=== PATIENT | female | born 1950 | race Caucasian/White ===

== ENCOUNTER → 2017-07-22 | Outpatient (CLI) | payer MEDICARE ==
[~2017-07-22] VITALS: Ht 165.1 cm; Wt 85.3 kg
[~2017-07-22] MED LIST: ATORVASTATIN CA40 MG PO; CLONAZEPAM 1 MG1 M1 PO; COREG CR20 MG PO; COREG PO; CYMBALTA30 MG PO; CYMBALTA60 MG PO; DEPAKOTE250 MG PO; DIURETIC; ESTRADIOL 1 MG T1 M1 PO; FISH OIL 1,001000 MG PO; HRT; HYDROCODON-ACE1 EAC5 PO; HYDROCODON-ACE1 EAC7 PO; HYDROCODON-ACE1 EACH PO; LISINOPRIL40 MG PO; NEURONTIN 300300 M1 PO; NEURONTIN100 MG PO; OXYCODONE HCL5 M1 PO; PRAVACHOL40 MG PO; PROZAC 10 MG CA10 M1 PO; PROZAC40 MG PO; SPIRONOLACTONE25 M1 PO; STATIN; TRAZODONE HCL100 MG PO; VENTOLIN HFA 1818 GM INH; VIIBRYD40 MG PO; VITAMIN D1000 UNI1 PO; VITAMIN K100 MCG PO; VITCB500GO PO; VOLTAREN GEL 1100 G1 TOP; VYBRID PO; ZANAFLEX4 MG PO; ZETIA10 MG PO; [UNRECOGNIZED DRUG - OTHER] PO; [UNRECOGNIZED DRUG - OTHER] PO
--- NOTE | ~2017-07-22 | HPC ---
[facility] [place] [address] PAIN MANAGEMENT CONSULTATION Name: KENZIEBROCK M Room #: REG PASHA Mendoza#: [id number] Admission: 07/22/17 Attend Phys: Bandar Smith DO Discharge: Date of : 48 Report #: [id number] THIS REPORT FOR: //name// CC: Jurgen Smith The patient is a 67-year-old female seen about a year and a half ago by Dr. Cortez Arenas for chronic intractable pain. The patient has ongoing pain in the right knee. Status post right total knee arthroplasty, which the patient states has not been efficacious. She states she has seen another physician in the [facility] who recommended surgical revision of the knee. She states she has had two years of "misery." She uses hydrocodone p.r.n. though opiate analgesics cause some cognitive impairment. She rates the pain as an 8 on a VAS. Notes the pain is exacerbated with any weightbearing on the right lower extremity. Pain is primarily in the knee, lateral aspect. Diagnostic studies were done at [facility]. We do not have access to any of these. They have told her by report, the prosthesis "looks good." The patient and her were seen today in consultation. She was seen for approximately 30 minutes from 13:50 to 14:20 and ultimately taken to the procedure room at 14:25. With ongoing pain, status post total knee arthroplasty, I suggests she get a second opinion from orthopedic physician outside of her primary operating physician's group. It is noteworthy that the second opinion within the group did state that she needed the appliance revised. Per the patient, she is very leery of moving forward with surgery as she is convinced that surgeons will simply decide to operate because "that is what surgeons do. I suggested that she see Dr. Maxx Rodgers and gave them contact information for the same. The patient tells me that her mother " from a knee replacement." I assured her that her mother from a complication from surgery, but did not from the total knee arthroplasty. PHYSICAL EXAMINATION: Does show a 67-year-old female, BMI is 31.3 kilograms per meter squared. Vital signs are stable. Alert and oriented to person, place, and time and judged to be a reasonable historian. Rises from chair using armrest. Markedly antalgic gait. Very tender to palpation over the left knee. Range of motion is full. Well-healed surgical scar compatible with prior history. ASSESSMENT: Symptomatic right knee pain, status post total knee arthroplasty, chronic pain syndrome requiring complex medication management, status post lumbar decompressive laminectomy with spinal cord stimulator in place that is nonfunctional, she is unable to recharge the battery. However, she is not describing any specific radicular pain pattern. [address] [address] PAIN MANAGEMENT CONSULTATION Name: KENZIEBROCK [facility] [id number] Admission: 07/22/17 Attend Phys: Bandar Smith DO Discharge: Date of : 48 Report #: [id number] Right knee pain, status post total knee arthroplasty for DJD. RECOMMENDATIONS: After a long discussion with the patient today, I have strongly encouraged her to seek a second opinion regarding the knee appliance. Today, we have agreed to move forward with a genicular nerve block x 3 on the right knee. If this affords transient relief, we will consider radiofrequency neurolysis of the same. Otherwise, have the patient continue p.r.n. hydrocodone. I have in fact renewed for her today, hydrocodone 10, dispensed 60 tablets 1 q. 6-8 hours as needed for pain. The patient cautioned about daytime somnolence, mental acuity changes and constipation. PROCEDURE: Right knee superior medial, superior lateral and inferior medial genicular nerve block under fluoroscopy. Fluoroscopy time was under 20 seconds. PROCEDURE NOTE: After written informed consent was obtained, the patient was taken to the fluoroscopy suite and placed in the supine position. After sterile prep and drape, a skin wheal with Xylocaine was raised. Three 22-gauge styletted spinal needles were placed at the metaphysis of the femur, medial and lateral. A third needle was placed at the metaphysis in the inferior medial aspect of the tibia. AP and lateral projections showed good needle placement. 1 mL of 50:50 mix of 0.5% preservative free bupivacaine plus 1.5% preservative-free Xylocaine with 1:200,000 epinephrine was injected at all three needles. All three needles were removed. The area was cleansed and Band-Aids applied. The patient monitored for an appropriate period of time, discharged in good and stable condition, noting dramatic improvement in baseline pain stating pain was an 8 on a VAS on admission and absent on discharge. She would like to move forward with radiofrequency neurolysis of three genicular nerves on the right knee. We will seek authorization for the same. <ELECTRONICALLY SIGNED> By: Bandar Smith DO 07/24/17 0820 [id number] Bandar Smith DO /nt
[2017-07-22 13:26] VITALS: BP 117/87
== END | disposition home or self-care (01) ==
LOC: PAIN 06-06 10:17
DX: M25.561 Pain in right knee (principal); M17.11 Unilateral primary osteoarthritis, right knee; G89.29 Other chronic pain; Z79.891 Long term (current) use of opiate analgesic; Z96.651 Presence of right artificial knee joint; Z87.891 Personal history of nicotine dependence; Z79.899 Other long term (current) drug therapy; Z98.890 Other specified postprocedural states

== ENCOUNTER → 2017-09-04 | Outpatient (CLI) | payer MEDICARE | END | disposition home or self-care (01) | LOC: RAD 06:10 | DX: M43.16 Spondylolisthesis, lumbar region (principal); M54.5 Low back pain; Z79.891 Long term (current) use of opiate analgesic; Z88.8 Allergy status to other drugs, medicaments and biological substances; Z79.899 Other long term (current) drug therapy ==